=== PATIENT | male | born 1995 | race Hispanic/Latino ===

== ENCOUNTER 2017-10-01 14:27 | Inpatient (IN) | payer MEDICAID, OTHER ==
[2017-10-01] MEDS ORDERED: ISOVUE-370 76%-LOCM 1 ML ONE (14:51)
[2017-10-01 15:07] LABS: #Eosinphils 0.1 thou/uL (0.0-0.7); #Monocytes 0.6 thou/uL (0.11-0.59); #Neutrophils 5.5 thou/uL (1.40-6.50); %Basophils 0.6 % (0.0-1.0); %Eosinophils 1.6 % (0.0-10.0); %Lymphocytes 23.9 % (21.0-51.0); %Monocytes 6.9 % (0.0-10.0); %Neutrophils 67.1 % (42.0-75.0); Hemoglobin 13.2 g/dL (14.0-18.0); Mean Corpuscular HGB CONC 33.9 g/dL (32.0-36.0); Mean Corpuscular Hemoglobin 31.3 pg (27.0-31.0); Mean Corpuscular Volume 92.3 fL (78.0-98.0); Mean Platelet Volume 7.9 fL (7.4-10.4); Platelet Count 238 thou/uL (130-400); RBC Distribution Width 12.1 % (11.5-14.5); Red Blood Cell (RBC) Count 4.22 mill/uL (4.70-6.10); White Blood Cell (WBC) Count 8.2 thou/uL (4.8-10.8)
[2017-10-01 15:29] LABS: ALT (SGPT) 41 U/L (8-55); AST (SGOT) 35 U/L (5-34); Albumin 4.1 g/dL (3.5-5.0); Alkaline Phosphatase 103 U/L (40-150); Anion Gap 12 mmol/L (10-20); BUN (Urea Nitrogen) 11 mg/dL (8.9-20.6); Bilirubin, Total 0.4 mg/dL (0.2-1.2); Calc. Creatinine Clearance 0 mL/min (70-130); Carbon Dioxide 25 mmol/L (22-29); Chloride 106 mmol/L (98-107); Estimated GFR-MDRD Greater than 90; Globulin 2.6 g/dL (2.4-3.5); Glucose 76 mg/dL (70-105); Potassium 4.1 mmol/L (3.5-5.1); Protein, Total 6.7 g/dL (6.0-8.3); Sodium 139 mmol/L (136-145)
[2017-10-01 15:33] LABS: Troponin I 0.012 ng/mL (< 0.028)
[2017-10-01 15:36] LABS: CKMB 10.5 ng/mL (0-6.6)
--- NOTE | 2017-10-01 15:48 | RAD ---
AP VIEW OF THE CHEST: INDICATION: Chest pain. COMPARISON: Prior exam dated 11/08/[address] of the chest dated 07/07/14. FINDINGS: The moderate cardiomegaly is stable. Dual-lead AICD is unchanged. No consolidation, pleural effusio n or pneumothorax is evident. Pulmonary vasculature is within normal limits. IMPRESSION: Stable cardiomegaly with automatic implantable cardioverter/defibrillator. POS: [facility]
--- NOTE | 2017-10-01 19:11 | CT ---
CT ANGIO OF CHEST WITH CONTRAST: 10/01/17 Multiple axial tomograms obtained through the chest following an angio protocol with multiplanar zenon nstructions and 3D postprocessing. INDICATIONS: Left lower extremity edema. Chest pain, shortness of breath. Pulmonary arteries are well opacified. No evidence of pulmonary embolus. The lungs show no evidence of vocal infiltrate. There are small bilateral pleural effusions. There is cardiomegaly. Nonspecific mediastinal and hilar lymph node enlargement without overt adenopathy. Reta ges through upper abdomen unremarkable. IMPRESSION: 1. No evidence of pulmonary embolus. 2. Cardiomegaly and mild vascular congestion. 3. Small bilateral effusions. 4. Nonspecific mediastinal and hilar lymph node enlargement. POS: [facility]
--- NOTE | 2017-10-01 19:13 | ULT ---
LEFT LOWER EXTREMITY VENOUS DUPLEX EXAM: 10/01/17 Deep veins of left lower extremity evaluated with color doppler and spectral analysis and compression . INDICATIONS: Left lower extremity pain and edema. Deep veins of the left lower extremity demonstrate normal blood flow and compression. No evidence of DVT. IMPRESSION: No evidence of left lower extremity DVT. POS: [facility]
[2017-10-01] MEDS ORDERED: Furosemide 40 MG/4 ML VIAL ONE (21:45)
[2017-10-01 22:12] LABS: Troponin I 0.017 ng/mL (< 0.028)
[2017-10-01 23:34] VITALS: BMI 26.4
[2017-10-02] MEDS ORDERED: Ondansetron HCl/PF 4 MG/2 ML Vial IVP PRN (03:04)
[2017-10-02] MEDS ORDERED: Acetaminophen 325 MG TAB PO PRN (03:04)
[2017-10-02 03:05] LABS: Troponin I 0.024 ng/mL (< 0.028)
[2017-10-02 06:09] LABS: #Eosinphils 0.1 thou/uL (0.0-0.7); #Lymphocytes 2.4 thou/uL (1.20-3.40); #Monocytes 0.7 thou/uL (0.11-0.59); #Neutrophils 4.7 thou/uL (1.40-6.50); %Basophils 0.3 % (0.0-1.0); %Eosinophils 1.6 % (0.0-10.0); %Lymphocytes 29.8 % (21.0-51.0); %Monocytes 8.5 % (0.0-10.0); %Neutrophils 59.8 % (42.0-75.0); Hemoglobin 14.1 g/dL (14.0-18.0); Mean Corpuscular HGB CONC 33.5 g/dL (32.0-36.0); Mean Corpuscular Hemoglobin 30.9 pg (27.0-31.0); Mean Corpuscular Volume 92.2 fL (78.0-98.0); Mean Platelet Volume 8.8 fL (7.4-10.4); Platelet Count 255 thou/uL (130-400); RBC Distribution Width 12.3 % (11.5-14.5); Red Blood Cell (RBC) Count 4.56 mill/uL (4.70-6.10); White Blood Cell (WBC) Count 7.9 thou/uL (4.8-10.8)
[2017-10-02 06:12] LABS: Anion Gap 15 mmol/L (10-20); BUN (Urea Nitrogen) 11 mg/dL (8.9-20.6); Calc. Creatinine Clearance 123 mL/min (70-130); Calcium 9.6 mg/dL (7.8-10.44); Carbon Dioxide 28 mmol/L (22-29); Chloride 102 mmol/L (98-107); Estimated GFR-MDRD Greater than 90; Glucose 101 mg/dL (70-105); Potassium 3.6 mmol/L (3.5-5.1); Sodium 141 mmol/L (136-145)
--- NOTE | 2017-10-02 08:13 | HP ---
CODE STATUS: The patient is full resuscitation. TIME OF EVALUATION: 12:35 a.m. PRIMARY CARE PHYSICIAN: No primary care doctor. CHIEF COMPLAINT: Shortness of breath and increased leg swelling. HISTORY OF PRESENT ILLNESS: This is a 22 years old male patient with past medical history of congeni radhames hypertrophic obstructive cardiomyopathy, the patient reported that for the past few days he has b een feeling tired, with increased shortness of breath and also has noticed that bilateral feet has in creased edema, no clear triggers, no alleviating factors, symptoms are reported as moderate and inter fering with activities of daily living. REVIEW OF SYSTEMS: Constitutional: No fever, no chills. Generalized weakness. Respiratory: No cou gh or sputum production. No shortness of breath. Cardiovascular: The patient reported chest pain w ith shortness of breath. No palpitation. Gastrointestinal: No nausea, no vomiting, no diarrhea, no abdominal pain. ADDICTION SOCIAL WORKER: No dizziness, headache or feeling lightheaded. Genitourinary: No burning wi th urination. Extremities: Bilateral leg swelling. All other systems were reviewed and negative ex cept for the findings mentioned above. PAST MEDICAL HISTORY: Patient has a history of inguinal hernia, congenital hypertrophic obstructive cardiomyopathy. SOCIAL HISTORY: No alcohol, no drugs. PAST SURGICAL HISTORY: Pacemaker placement in 2003. PSYCHIATRIC HISTORY: Anxiety, depression, bipolar disorder. KNOWN ALLERGIES: No known drug allergies. REPORTED MEDICATIONS: Lopressor 25 mg once a day. PHYSICAL EXAMINATION: VITAL SIGNS: On presentation, blood pressure is 132/81 with heart rate 71, respiratory rate was 19, temperature 98.4, pain was 6/10, oxygen saturation 97% on room air. GENERAL APPEARANCE: The patient is alert, oriented, not in acute distress. HEENT: Eyes: Normal conjunctivae. Anicteric. Moist oral mucosa. NECK: No JVD. RESPIRATORY: Bilateral air entry. No rales, no wheezing. Symmetric expansion. The patient has def ibrillator placed in the left chest. CARDIOVASCULAR: Regular rate, regular rhythm, no murmurs, no gallop. EXTREMITIES: Bilateral leg edema. ABDOMEN: Soft, normal bowel sounds. MUSCULOSKELETAL: Baseline range of motion and strength. No tenderness. SKIN: Warm and intact. No pallor, no rash, no redness. NEUROLOGIC: No evidence of any new focal weakness. Baseline speech. Cranial nerve, sensory intact. PSYCHIATRIC: The patient is in a good mood. No anxiety, oriented. Ultimate judgment. LABORATORY DATA AND IMAGING: EKG was reviewed discussed with the performing physician from ER. The patient has normal sinus rhythm with a rate of 67 with prolonged QT, bilateral enlargement, some nons pecific ST-T wave abnormalities. X-ray was reviewed, stable cardiomegaly with automatic implantable cardioverter ____. Chest CT was reviewed. The patient has no evidence of pulmonary embolism, cardio megaly, mild vascular congestion, small bilateral effusions, nonspecific, mediastinal lymph nodes enl argement. The vascular ultrasound showed the patient has no evidence of left lower extremity DVT. T he labs were reviewed. The patient had a white count of 8.2, hemoglobin 13.2, MCV 92, platelet count is 238. D-dimer 0.9. Chemistry was completely normal except for CK 10.5 and beta natriuretic pepti de was 2971. ASSESSMENT AND PLAN: The patient will be placed in the hospital for the following medical problems. 1. New onset congestive heart failure, likely secondary to congenital hypertrophic obstructive cardi omyopathy, Dr. Coulter has been consulted, for recommendations. We will continue diuresis, patient wi ll receive echo. 2. Deep venous thrombosis prophylaxis.
[2017-10-02] MEDS ORDERED: Furosemide 40 MG/4 ML VIAL SLOW IVP SCH (09:00)
[2017-10-02] MEDS ORDERED: Enoxaparin Sodium 40 MG/0.4 ML SYRINGE SC SCH (09:00)
--- NOTE | 2017-10-02 14:18 | PDOC.PN ---
- Subjective Encounter Start Date: 10/02/17 (f/u on shortness of breath) Encounter Start Time: 14:16 Subjective: pt reports breathing is normal, swelling is resolved. Denies any -: complaints or concerns - Objective Resuscitation Status: Resuscitation Status FULL:Full Resuscitation Vital Signs & Weight: Vital Signs (12 hours) Temp Pulse Resp BP BP Pulse Ox 10/02/17 12:20 98.7 F 63 16 122/68 98 10/02/17 10:05 66 10/02/17 08:50 97.5 F L 53 L 16 121/70 98 10/02/17 03:54 98.1 F 66 14 115/60 100 Weight Weight 147 lb I&O: 10/01/17 10/02/17 10/03/17 06:59 06:59 06:59 Intake Total 480 Output Total 500 Balance -20 Result Diagrams: 10/02/17 02:27 10/02/17 02:27 EKG Reviewed by me: Yes (tele - sinus 50-60's, paced, 6 beats WCT) Phys Exam - Physical Examination Constitutional: NAD Respiratory: no wheezing, no rales, no rhonchi Cardiovascular: RRR 2/6 MALLIKA most audible at apex Gastrointestinal: soft, non-tender, no distention Musculoskeletal: no edema, pulses present Neurological: non-focal, moves all 4 limbs Psychiatric: normal affect Skin: no rash Dx/Plan (1) Heart failure Code(s): I50.9 - HEART FAILURE, UNSPECIFIED Status: Acute Qualifiers: Heart failure type: diastolic (2) Congenital hypertrophic obstructive cardiomyopathy Code(s): Q24.8 - OTHER SPECIFIED CONGENITAL MALFORMATIONS OF HEART Status: Chronic - Plan * Pt responded well to lasix - will d/c further lasix as he is asx and has a normal EF * Cardiology consultation - aicd interrogated * Low sodium diet * continue his outpatient dosing of metoprolol * * dvt prophy - change to scd's in case procedure is needed * gi prophy not indicated * code status full * * reviewed plan of care, no questions or further needs at end of eval. .
[2017-10-02 16:42] VITALS: BP 135/77; TEMP 97.9
--- NOTE | 2017-10-02 20:23 | CON ---
DATE OF CONSULTATION: 10/02/2017 REASON FOR CONSULTATION: Defibrillator "beeping," history of defibrillator implantation, and hypertr ophic cardiomyopathy. HISTORY OF PRESENT ILLNESS: Mr. Oden is a 22-year-old gentleman has a long history of diagnosis of hypertrophic cardiomyopathy. He had a defibrillator put in, he thinks about 10 years ago. He notice d that the defibrillator was beeping. He has to be brought to the emergency room. He currently is i ncarcerated in the detention here in [facility]. He did report some feeling tired, more shortness of breath, some feet swelling. REVIEW OF SYSTEMS: Constitutional: No significant weight gain or loss. Vision: No changes. Heari ng: No changes. Pulmonary: No cough or wheezing. Gastrointestinal: No nausea, vomiting, or diarr hea. Skin: No rashes. Neurologic: No unilateral weakness or numbness. Psychiatric: No unusual d epression or anxiety. PAST MEDICAL HISTORY: Congenital hypertrophic cardiomyopathy. SOCIAL HISTORY: No alcohol or drugs. PAST SURGICAL HISTORY: Defibrillator 2003. PSYCHIATRIC HISTORY: No anxiety or depression. ALLERGIES: None known. MEDICATIONS: Metoprolol 25 mg a day. PHYSICAL EXAMINATION: GENERAL: It is a pleasant, thin 22-year-old male. VITAL SIGNS: Blood pressure 122/68, pulse 62, it is regular. HEENT: Eyes, sclerae nonicteric. Mouth, mucous membranes are moist. NECK: Supple, no lymphadenopathy. LUNGS: Clear. No wheezing, rales or rhonchi. CARDIAC: Normal S1, normal S2. There is no S3. There is 1-2/6 midsystolic murmur, left midsternal border. No diastolic murmur, no S3. ABDOMEN: Soft, nontender. EXTREMITIES: No clubbing, no cyanosis or edema. Peripheral pulses are intact in his feet. Dorsalis pedis and posterior tibial normal bilaterally. PERTINENT LABORATORY DATA: Potassium was 3.6. Troponin 0.024. BNP 2971. The patient did receive s ome furosemide with a very slight amount of urine output identified. Echocardiogram showed severe concentric global left ventricular hypertrophy with no obstructions. ASSESSMENT: 1. Hypertrophic nonobstructive cardiomyopathy. 2. Previous defibrillator implantation with an alert beeping. PLAN: We will have the company come and check and see if the device is functioning adequately. The capture thresholds looked fine. We will need to get them to interrogate to see whether there is anyt teo further needs to be done about this device. He says he gets it checked about every 6 months in [place] where it was placed.
--- NOTE | 2017-10-03 00:34 | DIS ---
DATE OF ADMISSION: 10/01/2017 DATE OF DISCHARGE: 10/02/2017 PROCEDURES PERFORMED: AICD was interrogated and adjusted to shut off a false alarm. CONSULTANTS: Dr. Coulter of Cardiology. MEDICATIONS: Reconciled at discharge. NEW MEDICATION: Spironolactone 25 mg once daily. CONTINUED MEDICATION: Metoprolol succinate 75 mg p.o. daily. FOLLOWUP: 1. Followup is with a basic metabolic panel in about 2 weeks to ensure normal renal function with the spironolactone. 2. Follow up with the medical personnel at the [facility] with any concerns and with the primary care provider upon release. FINAL DIAGNOSES: 1. Hypertrophic obstructive cardiomyopathy with a normal ejection fraction; however, diastolic dysfunction. 2. False alarm on the AICD, now resolved. 3. Nonspecific mediastinal and hilar lymph node enlargement. 4. Cardiomegaly. HISTORY OF PRESENT ILLNESS: Mr. Oden is a 22-year-old male with the above medical problems who had noticed fatigue, increasing shortness of breath and swelling of his feet in addition to palpitations. He presented to the [facility] medical personnel for further evaluation and was brought to the emergency room here. HOSPITAL COURSE: The patient was monitored on telemetry and maintained at sinus rhythm and paced rhythm in the 50s and 60s with 6 beats of a wide complex tachycardia that self resolved. He was evaluated with echocardiogram which shows a normal ejection fraction as well as severe concentric LVH. In discussion with Dr. Coulter, patient has diastolic dysfunction secondary to the hypertrophy and may benefit from being on spironolactone for prevention of future diastolic dysfunction and pulmonary edema. Patient will be discharged back to the facility with this new medication and we will continue on his home medication of metoprolol. The patient was diuresed in the hospital for the edema and reports complete resolution of all symptoms. He is hemodynamically normal and meets criteria for [facility] to the [facility]. His AICD was interrogated and found to have a false alarm - this was fixed on day of discharge. PHYSICAL EXAMINATION: Please see the note that is on the chart for today. EDGAR FINDINGS AND TEST RESULTS: 1. CBC 7.9, 14.1, 42, 255. 2. D-dimer 0.92. 3. Chemistry: 141, 3.6, 102, 28, 11, 0.89, 101. 4. Troponin, 0.024, 0.020, 0.017, 0.012. 5. Liver function test; total bilirubin 0.4, AST 35, ALT 41, alkaline phosphatase 103, total protein 6.7, albumin 4.1. 6. CK-MB was drawn in 10.5 at 14:59 yesterday. 7. Chest x-ray shows stable cardiomegaly with implanted AICD. 8. CT angiogram shows no evidence of PE, cardiomegaly and mild vascular congestion, small bilateral pleural effusions, nonspecific mediastinal and hilar lymph node enlargement. 9. Ultrasound of his left lower extremity negative for DVT. DIET: Heart healthy. ACTIVITY: As tolerated. DISCHARGE DISPOSITION: To the [facility] with the accompanying recreational therapy aide. Reviewed with the patient this hospitalization, change made to the AICD to stop the false alarm, the new medication and seek care precautions He demonstrates understanding. Total time coordinating discharge is 20 minutes. MTDD
== END 2017-10-02 18:20 | DRG 293 ==
LOC: ERS 14:27 → 2NO 22:38
PROVIDERS: ADMIT Hospitalist; ATTEND Hospitalist
DX: I50.30 Unspecified diastolic (congestive) heart failure (principal); Q24.8 Other specified congenital malformations of heart; R59.0 Localized enlarged lymph nodes; I51.7 Cardiomegaly; Z95.810 Presence of automatic (implantable) cardiac defibrillator
CPT/HCPCS: 36415; 71045; 71275; 80048; 80053; 82553; 83880; 84484; 85025; 85379; 93005; 93306; 96374; A4216; J1650; J1940

== ENCOUNTER 2020-12-19 18:07 | Emergency (ER) | payer OTHER, SELFPAY | END 2020-12-19 22:36 | LOC: ERS 18:07 | DX: Z53.21 Procedure and treatment not carried out due to patient leaving prior to being seen by health care provider (principal) ==

== ENCOUNTER 2020-12-24 18:58 | Emergency (ER) | payer OTHER ==
[2020-12-24] MEDS ORDERED: Ketorolac Tromethamine 30 MG/ML VIAL ONE (21:58)
== END 2020-12-24 22:24 | disposition home or self-care (01) ==
LOC: ERS 18:58
DX: M62.838 Other muscle spasm (principal); I50.9 Heart failure, unspecified
CPT/HCPCS: 96372; 99283; J1885